=== PATIENT | male | born 1990 | race African-American/Black ===

== ENCOUNTER 2017-12-07 10:40 | Emergency (ER) | payer MEDICAID ==
[~2017-12-07] VITALS: Ht 175.3 cm; Wt 80.0 kg
[2017-12-07 10:50] VITALS: BP 108/60
== END 2017-12-07 16:00 | disposition left against medical advice (07) ==
LOC: ER 12:48
DX: Z53.21 Procedure and treatment not carried out due to patient leaving prior to being seen by health care provider (principal)

== ENCOUNTER 2018-08-10 14:19 | Emergency (ER) | payer SELFPAY ==
[~2018-08-10] VITALS: Ht 175.3 cm; Wt 77.0 kg
[2018-08-10] MEDS ORDERED: IBUPROFEN 600MG TABLET PO ONE (14:45)
[2018-08-10 15:50] VITALS: BP 122/62
== END 2018-08-10 16:35 | disposition home or self-care (01) ==
LOC: ER 14:19
DX: S86.812A Strain of other muscle(s) and tendon(s) at lower leg level, left leg, initial encounter (principal); F12.10 Cannabis abuse, uncomplicated; W50.2XXA Accidental twist by another person, initial encounter; Y93.89 Activity, other specified; Y92.89 Other specified places as the place of occurrence of the external cause; Y99.8 Other external cause status; Z98.890 Other specified postprocedural states
CPT/HCPCS: 73560; 99283; L1830

== ENCOUNTER 2020-06-29 18:07 | Emergency (ER) | payer OTHER ==
[~2020-06-29] VITALS: Ht 175.3 cm; Wt 77.0 kg
[2020-06-29] MEDS ORDERED: SODIUM CHLORIDE 0.9% 1,000 ML IV ONE (20:30)
[2020-06-29] MEDS ORDERED: MORPHINE SULFATE 4 MG/ML CPJ (NOT FOR IM USE) IV ONE (20:30)
[2020-06-29 20:46] VITALS: BP 147/70
[2020-06-29 21:24] LABS: BASOPHILS % 0.4 % (0.0-2.0); EOSINOPHILS % 0.7 % (0.0-5.0); HEMATOCRIT. 39.3 % (42.0-52.0); HEMOGLOBIN. 13.5 g/dL (14.0-18.0); LYMPHOCYTES % 29.3 % (20.0-50.0); MEAN CORPUSCULAR HEMOGLOBIN 31.8 pg (28.0-32.0); MEAN CORPUSCULAR VOLUME 92.5 fL (80.0-94.0); MEAN PLATELET VOLUME 8.6 fl (7.4-10.4); MONOCYTES % 10.2 % (2.0-8.0); NEUTROPHILS % 59.4 % (40.0-76.0); PLATELET 245 x1000/uL (130-400); RED BLOOD CELL COUNT 4.25 mill/uL (4.7-6.1); RED CELL DISTRIBUTION WIDTH 12.8 % (11.6-14.6)
[2020-06-29 21:29] LABS: CHLORIDE 105 mEq/L (98-107)
== END 2020-06-29 23:30 | disposition home or self-care (01) ==
LOC: ER 18:07
DX: S92.912A Unspecified fracture of left toe(s), initial encounter for closed fracture (principal); R07.89 Other chest pain; F12.10 Cannabis abuse, uncomplicated; Z98.890 Other specified postprocedural states; V49.9XXA Car occupant (driver) (passenger) injured in unspecified traffic accident, initial encounter; Y93.89 Activity, other specified; Y92.89 Other specified places as the place of occurrence of the external cause; Y99.8 Other external cause status
CPT/HCPCS: 36415; 70450; 71045; 73660; 80053; 83690; 84484; 85025; 93005; 96361; 96374; 99285; J2270; J7030; Z7610